=== PATIENT | male | born 1960 | race Hispanic/Latino ===

== ENCOUNTER 2017-09-26 06:37 | Day surgery (SDC) | payer BC ==
[2017-09-26] MEDS ORDERED: ECOTRIN PO NR (07:11)
[2017-09-26 07:43] LABS: Basophils # (Auto) 0.1 K/mm3 (0.0-0.1); Basophils % (Auto) 0.6 % (0.0-1.8); Eosinophils # (Auto) 0.1 K/mm3 (0.0-0.4); Eosinophils % (Auto) 0.8 % (0.0-4.3); Hematocrit 47.2 % (35.5-45.6); Hemoglobin 15.6 gm/dl (11.8-15.2); Lymphocytes # (Auto) 1.7 K/mm3 (1.2-5.4); Mean Corpuscular HGB Conc 33 % (32-34); Mean Corpuscular Hemoglobin 31 pg (28-32); Mean Corpuscular Volume 94 fl (84-94); Monocytes # (Auto) 0.8 K/mm3 (0.0-0.8); Monocytes % (Auto) 6.7 % (0.0-7.3); Platelet Count 348 K/mm3 (140-440); Red Blood Count 5.02 M/mm3 (3.65-5.03); Red Cell Distribution Width 12.9 % (13.2-15.2)
[2017-09-26 07:54] LABS: INR 0.87 (0.87-1.13)
[2017-09-26] MEDS ORDERED: NACL 0.9% 500 ML 500 ML IV SCH (08:00)
[2017-09-26 08:06] VITALS: BP 109/75
[2017-09-26 08:46] LABS: BUN/Creatinine Ratio 27; Blood Urea Nitrogen 16 mg/dL (9-20); Calcium 9.1 mg/dL (8.4-10.2); Hemolysis Index 15
--- NOTE | 2017-09-26 09:46 | Event Note ---
Date: 09/26/17 Patient with history of 3 vessel disease, prior 3 vessel CABG. He underwent cardiac cath last month at [facility]. He was scheduled for [facility] to undergo unproteceted left main PCI. Due to rejection of his insurance by [employer], he was referred to [facility] for his PCI by non-physician schedulers. I explained to him and that his PCI needs to be performed under surgery back-up and cannot be performed here. I spoke to his dj instructor, Dr Gann who will see him in office in a few days and reschedule his PCI for a tertiary center that accepts his insurance plan.
== END 2017-09-26 09:30 | disposition home or self-care (01) ==
LOC: CATHLABREC 06:37
PROVIDERS: ATTEND Internal Medicine Cardiovascular Disease
DX: I25.10 Atherosclerotic heart disease of native coronary artery without angina pectoris (principal); Z53.8 Procedure and treatment not carried out for other reasons; Z95.1 Presence of aortocoronary bypass graft; Z79.01 Long term (current) use of anticoagulants
CPT/HCPCS: 36415; 80048; 85025; 85610; 85730; 93005; 93010; J7040